=== PATIENT | male | born 1995 | race Caucasian/White ===

== ENCOUNTER 2020-10-28 18:33 | Emergency (ER) | payer BC ==
[~2020-10-28] VITALS: Ht 182.9 cm; Wt 158.8 kg
[~2020-10-28 18:33] MED LIST: CEPH500 PO; OMEP20ER; ONDA4ODT MM; PRED10 PO; SULTRIDS PO
== END 2020-10-28 22:13 | disposition home or self-care (01) ==
LOC: ER 18:33
DX: U07.1 COVID-19 (principal); J12.82 Pneumonia due to coronavirus disease 2019
CPT/HCPCS: 36415; 71045; 99284-25; J7030